=== PATIENT | male | born 1965 | race Caucasian/White ===

== ENCOUNTER → 2016-11-14 | Outpatient (CLI) | payer OTHER, BC ==
[~2016-11-14] MED LIST: ADVIL200 M3 PO; ALEVE220 M1 PO; ASPIRIN EC81 M1 PO; CARAFATE 1 GM TA1 GM PO; COLACE100 MG PO; COMBIVENT INH; DOXYCYCLINE 10100 M1 PO; ENOXAPARIN40 MG/0.1 SUBQ; EPOGEN2000 UNIT/ INJECTION; LEVAQUIN 250 M250 MG PO; METOPROLOL SUCC25 M1 PO; NEPHROCAPS SOFT1 CAP PO; NORCO 10-325 T1 EACH PO; PACERONE 200 M200 M1 PO; PREDNISOLONE 5 M5 M1 PO; PREDNISONE 20 M20 M1 PO; PREDNISONE 5 MG5 M1 PO; PROTONIX40 M2 PO; RENAGEL PO; RENAL VITAMIN PO; RENVELA800 MG PO; SENSIPAR60 MG PO; TOPROL XL25 MG PO; VICODIN 5-5001 EACH PO
== END ==
LOC: HYPER 11-12 14:08
DX: S91.301A Unspecified open wound, right foot, initial encounter (principal); N18.6 End stage renal disease; Z90.5 Acquired absence of kidney; W22.8XXA Striking against or struck by other objects, initial encounter; Y93.E4 Activity, ironing; Y92.89 Other specified places as the place of occurrence of the external cause; Y99.8 Other external cause status

== ENCOUNTER → 2017-03-05 | Outpatient (CLI) | payer OTHER, BC | LOC: HYPER 06:52 | DX: S61.308A Unspecified open wound of other finger with damage to nail, initial encounter (principal); N18.6 End stage renal disease; Z94.0 Kidney transplant status; Z99.2 Dependence on renal dialysis; X58.XXXA Exposure to other specified factors, initial encounter; Y93.89 Activity, other specified; Y92.89 Other specified places as the place of occurrence of the external cause; Y99.8 Other external cause status ==

== ENCOUNTER → 2017-04-01 | Outpatient (CLI) | payer OTHER | LOC: HYPER 03-12 06:46 | DX: S61.200D Unspecified open wound of right index finger without damage to nail, subsequent encounter (principal); N18.6 End stage renal disease; Z99.2 Dependence on renal dialysis; Z94.0 Kidney transplant status; W22.8XXD Striking against or struck by other objects, subsequent encounter ==

== ENCOUNTER → 2017-04-29 | Outpatient (CLI) | payer OTHER | LOC: HYPER 06:51 | DX: S61.200D Unspecified open wound of right index finger without damage to nail, subsequent encounter (principal); I70.268 Atherosclerosis of native arteries of extremities with gangrene, other extremity; E11.628 Type 2 diabetes mellitus with other skin complications; E11.40 Type 2 diabetes mellitus with diabetic neuropathy, unspecified; E11.22 Type 2 diabetes mellitus with diabetic chronic kidney disease; N18.6 End stage renal disease; Z99.2 Dependence on renal dialysis; Z94.0 Kidney transplant status; W22.8XXD Striking against or struck by other objects, subsequent encounter ==

== ENCOUNTER → 2017-05-01 | Outpatient (CLI) | payer OTHER | LOC: ULTRA 12:56 | DX: M79.601 Pain in right arm (principal); I99.8 Other disorder of circulatory system ==

== ENCOUNTER → 2018-01-08 | Outpatient (CLI) | payer OTHER | LOC: HYPER 07:06 | DX: S60.041A Contusion of right ring finger without damage to nail, initial encounter (principal); S60.032A Contusion of left middle finger without damage to nail, initial encounter; L84 Corns and callosities; E11.22 Type 2 diabetes mellitus with diabetic chronic kidney disease; N18.6 End stage renal disease; Z94.0 Kidney transplant status; Z79.82 Long term (current) use of aspirin; W22.8XXA Striking against or struck by other objects, initial encounter; Y93.89 Activity, other specified; Y92.89 Other specified places as the place of occurrence of the external cause; Y99.8 Other external cause status ==

== ENCOUNTER → 2018-01-21 | Outpatient (CLI) | payer OTHER | LOC: HYPER 06:55 | DX: S60.041D Contusion of right ring finger without damage to nail, subsequent encounter (principal); S60.032D Contusion of left middle finger without damage to nail, subsequent encounter; E11.22 Type 2 diabetes mellitus with diabetic chronic kidney disease; N18.6 End stage renal disease; L84 Corns and callosities; Z99.2 Dependence on renal dialysis; Z94.0 Kidney transplant status; W22.8XXD Striking against or struck by other objects, subsequent encounter ==

== ENCOUNTER → 2018-02-11 | Outpatient (CLI) | payer OTHER | LOC: HYPER 06:54 | DX: T81.89XA Other complications of procedures, not elsewhere classified, initial encounter (principal); S61.208D Unspecified open wound of other finger without damage to nail, subsequent encounter; E11.9 Type 2 diabetes mellitus without complications; L84 Corns and callosities; N18.6 End stage renal disease; X58.XXXD Exposure to other specified factors, subsequent encounter; Y92.89 Other specified places as the place of occurrence of the external cause; Y83.8 Other surgical procedures as the cause of abnormal reaction of the patient, or of later complication, without mention of misadventure at the time of the procedure ==

== ENCOUNTER → 2018-03-30 | Outpatient (CLI) | payer OTHER | LOC: HYPER 03-12 08:38 | DX: T81.89XD Other complications of procedures, not elsewhere classified, subsequent encounter (principal); S60.041D Contusion of right ring finger without damage to nail, subsequent encounter; S60.032D Contusion of left middle finger without damage to nail, subsequent encounter; L84 Corns and callosities; E11.22 Type 2 diabetes mellitus with diabetic chronic kidney disease; N18.6 End stage renal disease; Z99.2 Dependence on renal dialysis; Z94.0 Kidney transplant status; W22.8XXD Striking against or struck by other objects, subsequent encounter; Y83.8 Other surgical procedures as the cause of abnormal reaction of the patient, or of later complication, without mention of misadventure at the time of the procedure ==